=== PATIENT | male | born 1970 | race Caucasian/White ===

== ENCOUNTER 2016-12-18 11:40 | Inpatient (IN) | payer OTHER ==
[~2016-12-18 11:40] MED LIST: BACITRACIN 50,000 UNITS/10 ML SYR IRR ONE; BUPIVACAINE/EPI 0.25% 30 ML SDV ONE; SKIN ADHESIVE (DERMABOND) 1 EACH TP ONE; THROMBIN (RECOMBINANT) 20,000 UNIT VIAL TP ONE; ceFAZolin 2 GM/DEXTROSE 100 ML IV ONE
[2016-12-18] MEDS ORDERED: CEFAZOLIN 2 GM/DEXTROSE/100 ML BAG IV ONE (13:10)
[2016-12-18] MEDS ORDERED: GABAPENTIN 300 MG CAP PO ONE (13:30)
[2016-12-18] MEDS ORDERED: fentaNYL 100 MCG/2 ML INJ ONE ×2 (13:54→20:46)
[2016-12-18] MEDS ORDERED: PROPOFOL 200 MG/20 ML VIAL ONE ×2 (13:54→17:04)
[2016-12-18] MEDS ORDERED: REMIFENTANIL HCL 1 MG VIAL ONE ×3 (13:54)
[2016-12-18] MEDS ORDERED: PROPOFOL/EMULSION 500 MG/50 ML BOTTLE IV ONE ×2 (13:54→18:22)
[2016-12-18] MEDS ORDERED: LACTULOSE 20 GM/30 ML UDCUP PO PRN (16:58)
[2016-12-18] MEDS ORDERED: ONDANSETRON 4 MG/2 ML VIAL IVP PRN (16:58)
[2016-12-18] MEDS ORDERED: diphenhydrAMINE 25 MG CAP PO PRN (16:58)
[2016-12-18] MEDS ORDERED: ONDANSETRON DISINTEGRATING 4 MG TAB PO PRN (16:58)
[2016-12-18] MEDS ORDERED: DIAZEPAM 5 MG TAB PO PRN (16:58)
[2016-12-18] MEDS ORDERED: MAGNESIUM HYDROXIDE 30 ML UDCUP PO PRN (16:58)
[2016-12-18] MEDS ORDERED: METHOCARBAMOL 750 MG TAB PO PRN (16:58)
[2016-12-18] MEDS ORDERED: DIAZEPAM 10 MG/2 ML SYR IVP PRN (16:58)
[2016-12-18] MEDS ORDERED: POLYETHYLENE GLYCOL 3350 17 GM PKT PO PRN (16:58)
[2016-12-18] MEDS ORDERED: BISACODYL 10 MG SUPP PR PRN (16:58)
[2016-12-18] MEDS ORDERED: ACETAMINOPHEN 325 MG TAB PO PRN (16:58)
[2016-12-18] MEDS ORDERED: MIDAZOLAM 2 MG/2 ML VIAL ONE (16:59)
[2016-12-18] MEDS ORDERED: NS W/ 20 KCl/L 1,000 ML IV SCH (17:00)
[2016-12-18] MEDS ORDERED: ROCURONIUM 50 MG/5 ML VIAL ONE ×2 (17:03)
[2016-12-18] MEDS ORDERED: LIDOCAINE 2% 5 ML SDV ONE (17:04)
[2016-12-18] MEDS ORDERED: PHENYLEPHRINE HCL 100 MCG/ML SYR ONE (17:39)
[2016-12-18] MEDS ORDERED: ONDANSETRON 4 MG/2 ML VIAL ONE (18:06)
[2016-12-18] MEDS ORDERED: DEXAMETHASONE 4 MG/ML VIAL ONE (18:06)
[2016-12-18] MEDS ORDERED: KETAMINE 100 MG/10 ML SYR IVP ONE (18:33)
[2016-12-18] MEDS ORDERED: HYDROmorphONE/DILAUDID 2 MG/ML SYR ONE (18:33)
--- NOTE | 2016-12-18 20:06 | POSTOPPROG ---
Post Op Note Date of Operation: 12/18/16 Surgeon: Sukhjinder Quinn Hard Tile Setter: SURAJ Hilton, PAC Anesthesia: GET(General Endotracheal) Pre-op Diagnosis: spondylolisthesis, radiculopathy Post-op Diagnosis: spondylolisthesis, radiculopathy Indication: spondylolisthesis, radiculopathy Procedure: L5/S1 TLIF/PSF Inf/Abcess present in the surg proc area at time of surgery?: No EBL: 100cc PA Addendum - Addendum .: S: Incisional site, low back pain O: NAD A&Ox3 MAEx4 5/5 and equal in BUE and BLE A/P 46y/o male s/p L5/S! TLIF/PSF -Optimize pain management -Advance diet as tolerated -Post op xrays pending -PT/OT -DVT prophx: TEDs, SCDs, Lovenox okay POD#1 -Please notify NS with any change in neuro/motor exam
--- NOTE | 2016-12-18 21:19 | DX ---
Fluoroscopy Provided for Lumbar Spine Surgery at 1621 hours Indication: Low back pain. Fluoroscopy provided for lumbar spine fusion. Fluoroscopy time: 13.47 seconds. Dose: 36.59 mGy. Two O-arm spins were utilized yielding 438.93 DLP(mGycm) Technique: Two intraoperative spot films were obtained. Findings: Dual posterior fusion construct has been placed at L5-S1. Impression: Fluoroscopy provided for intraoperative localization for L5-S1 fusion.
[2016-12-18] MEDS ORDERED: HYDROmorphONE/DILAUDID 1 MG/ML SYR ONE (21:25)
[2016-12-18] MEDS ORDERED: NON-FORMULARY NEW DRUG (Oxycodone Hcl/Acetaminophen [Percocet 10-325 Mg Tablet] 1 EACH) PO SCH (22:00)
[2016-12-18] MEDS: metFORMIN HCL 500 MG TAB PO SCH (22:51)
[2016-12-18] MEDS: ACETAMINOPHEN 325 MG TAB PO SCH (23:06)
[2016-12-18] MEDS: BACLOFEN 10 MG TAB PO SCH (23:13)
[2016-12-18] MEDS: FAMOTIDINE 20 MG/NACL 50 ML IV SCH (23:14)
[2016-12-18] MEDS: GABAPENTIN 300 MG CAP PO SCH (23:14)
[2016-12-18] MEDS: oxyCODONE IR 5 MG TAB PO SCH (23:15)
[2016-12-18] MEDS: SENNOSIDES/DOCUSATE SODIUM TAB PO SCH (23:16)
[2016-12-18 23:32] VITALS: RESP 16
[2016-12-19] MEDS: OXYCODONE/APAP 5/325 TAB PO PRN ×2 (05:28→14:08)
--- NOTE | 2016-12-19 06:42 | GOP ---
[f rep st] OPERATIVE REPORT DATE OF OPERATION: 12/18/2016 SURGEON: Sukhjinder Quinn MD NEUROSURGEON: Sukhjinder Quinn MD. ZINC SKIMMER: THEODORE Mcbride. ANESTHESIA: General endotracheal. PREOPERATIVE DIAGNOSIS: L5-S1 isthmic spondylolisthesis with right L5 radiculopathy which has been c hronic and refractory to conservative management. POSTOPERATIVE DIAGNOSIS: L5-S1 isthmic spondylolisthesis with right L5 radiculopathy which has been chronic and refractory to conservative management. PROCEDURE PERFORMED: 1. L5-S1 transforaminal lumbar interbody fusion. 2. Placement of pedicle screw fixation and posterior instrumentation at L5 and S1. 3. O-arm stereotactic neuronavigation for screw placement. 4. Placement of interbody device at L5-S1. 5. Cody of local autograft. 6. Use of allograft BMP and demineralized bone matrix. 7. Use of the operative microscope. 8. Intraoperative somatosensory evoked potential monitoring. FINDINGS: Successful L5-S1 TLIF. SPECIMENS: There were no specimens. ESTIMATED BLOOD LOSS: 100 cc. INDICATIONS: The patient is a 46-year-old man who has right-sided leg pain in an L5 distribution. H e was found to have isthmic spondylolisthesis at L5-S1 and some foraminal stenosis associated with th is. He presented to our clinic, and after multiple attempts at conservative management, he has wishe d to pursue fusion. DESCRIPTION OF PROCEDURE: After informed consent was obtained from the patient, the patient was brou ght to the operating room. A formal time-out was performed identifying the patient by name, medical record number, and date of . Preoperative antibiotics were given. An endotracheal tube was jonelle rhonda, and general endotracheal anesthesia was smoothly induced. The patient was turned to the prone p osition on a Austin table, and all appropriate pressure points were padded and checked. The leads w ere placed for somatosensory evoked potential monitoring, and baselines were run and were normal. At this point, the low lumbar region was prepped and draped in the normal sterile fashion. 20 cc of 1% lidocaine with epinephrine was infiltrated in the skin for hemostasis. The O-arm was brought into t he field, and the L5-S1 interspace was identified, and the incision was planned appropriately. A 5 c m skin incision was then made centered over the L5-S1 disk space, and the subcutaneous tissues were d issected using monopolar electrocautery. The fascia was opened in the midline and the paraspinous mu scles were taken down from the L5 lamina and S1 lamina exposing the facet joints laterally. At this point, an O-arm stereotactic CT was performed, and stereotactic navigation was then used to localize the entry points for the pedicle screws at L5 and S1. Once the entry points were localized, on the l eft side a pedicle hole was drilled using navigation and was subsequently tapped for a 6.5 x 50 mm So alesia screw. The same procedure was performed at S1 on the left side, and this was drilled and tapped for a 6.5 x 55 mm Solera screw. The same procedure was performed on the right side, placing a 6.5 x 50 mm screw at L5 on the right and a 6.5 x 55 mm screw at S1 on the right. All of the screws were t ested using EMG, and none stimulated below the threshold. At this point, the high-speed drill was us ed to drill down the lamina and remove the inferior facet of L5 on the right side and then subsequent ly remove the superior facet of S1. The yellow ligament was removed, getting us down to the disk spa ce and the traversing nerve root medially. The operative microscope was then brought on the field, a nd the remainder of the procedure was performed under high power magnification. First, the disk spac e was entered sharply and pituitary forceps were used to remove what disk we could. We then used a c ombination of rasps and curettes to remove the remainder of the disk and decorticate the endplates. Once the diskectomy was completely performed, a small piece of BMP was advanced to the contralateral side and some autograft was placed into the disk space. We then sized the disk space for a 7-11 by 2 8 mm Elevate cage which was packed with BMP and autograft. This was then placed into the disk space under fluoroscopic vision and opened to its final height. Once we were satisfied with the placement of the cage, a small amount of autograft was then placed behind the cage into the disk space, and a small piece of Gelfoam was placed over the area of the TLIF. At this point, the wound was copiously irrigated using bacitracin irrigation. The right side was sized for a 35 mm justyn, and the left side w as sized for a 40 mm justyn, which were placed into the screw heads and connected with cap screws which were finally tightened to the appropriate torque. On the left side, the L5 lamina and S1 lamina were decorticated using a high-speed drill. The final piece of BMP was placed over this area which was c overed with autograft and allograft demineralized bone matrix. At this point, again the wound was co piously irrigated with a liter of bacitracin irrigation. There was no further bleeding, and we did n ot feel it necessary to place a drain. The fascia was then closed using interrupted 0 Vicryl. The s uperficial fascia was closed using interrupted 2-0 Vicryl. The deep dermis was closed using interrup brooks 2-0 Vicryl, and Dermabond was placed over the wound. Sterile dressings were placed. The patient was then awakened in the operating room and was turned back into the supine position. He was extuba brooks and was transferred to the PACU in stable condition. COMPLICATIONS: There were no operative complications. I was scrubbed and present for the entire procedure. COUNTS: All sponge and needle counts were correct at the end of the case. DRAINS: There were no drains. FLUIDS: Per the anesthesia record. URINE OUTPUT: Per the anesthesia record. /[id number]/MODL
[2016-12-19 07:35] VITALS: O2SAT 94
--- NOTE | 2016-12-19 08:04 | NEUSURGPN ---
Date of Surgery: 12/18/16 Post Op Day: 1 Assessment/Plan: POD #1 sp L5/S1 TLIF. Doing well Plan: Xrays today PT/OT advance activity as tolerated Needs LSO when out of bed. Subjective: in bed, comfortable with expected post op incisional pain denies numbness or tingling Objective: Dressing: CDI No JACLYN Neuro: Freire, Sens + LT follolws commands Urinary Catheter in Place: No Neurosurgery Physical Exam - Vitals, I&O, Labs I and O 12/18/16 12/19/16 12/20/16 05:59 05:59 05:59 Intake Total 2400 Output Total 150 Balance 2250 Intake: Oral (ml) 200 IV Intake (ml) 1400 IV Infused (ml) 800 ceFAZolin 1 GM/DEXTROSE 50 50 ml @ 200 mls/hr IV Q8H DAMIR Rx#:[id number] Famotidine 20 mg/NaCl 50 50 ml @ 200 mls/hr IV Q12HRS DAMRI Rx#:[id number] NS W/ 20 KCl/L 1,000 ml @ 700 75 mls/hr IV CONT DAMIR Rx #:[id number] Output: Estimated Blood Loss (ml) 150 Other: Output Comment Toilet PT states shy bladder unable to void in urinal or collection katz Number of Voids Toilet 3 Post Void Residual Scan Volume (ml) Toilet 100 Vital Signs Temp Pulse Resp BP Pulse Ox 36.8 C 93 16 133/83 H 94 12/19/16 07:35 12/19/16 07:35 12/19/16 07:35 12/19/16 07:35 12/19/16 07:35 ICD10 Worksheet Patient Problems: Problems Problem Status Diagnosed Spondylisthesis Acute - ICD10 Problem Qualifiers (1) Spondylisthesis
[2016-12-19] MEDS: metFORMIN HCL 500 MG TAB PO SCH ×2 (08:53→18:20)
[2016-12-19] MEDS: ACETAMINOPHEN 325 MG TAB PO SCH ×2 (08:54→16:26)
[2016-12-19] MEDS ORDERED: MOMETASONE FUROATE 50 MCG EACHNARE SCH (09:00)
[2016-12-19] MEDS ORDERED: CHOLECALCIFEROL VIT D3 1,000 UNITS TAB PO SCH (09:00)
[2016-12-19] MEDS ORDERED: FAMOTIDINE 20 MG TAB PO SCH (09:30)
[2016-12-19] MEDS: BACLOFEN 10 MG TAB PO SCH ×2 (09:42→16:20)
[2016-12-19] MEDS: GABAPENTIN 300 MG CAP PO SCH ×2 (09:43→16:21)
[2016-12-19] MEDS: SENNOSIDES/DOCUSATE SODIUM TAB PO SCH (09:43)
[2016-12-19] MEDS: oxyCODONE IR 5 MG TAB PO SCH ×2 (09:43→16:21)
[2016-12-19] MEDS: FAMOTIDINE 20 MG/NACL 50 ML IV SCH (09:48)
[2016-12-19 16:33] VITALS: BP 140/86; PULSE 102; TEMP 98.7
--- NOTE | 2016-12-19 18:23 | DX ---
Lumbar spine, 2 views. December 19, 2016. History: Postop. Comparison examination: September 17, 2016. Findings: Surgical features of instrumentation and fusion at L5-S1 with bilateral pedicle screws at b oth levels and posterior justyn fixation along with metallic intervertebral graft anteriorly. Minimal re sidual anterolisthesis of L5 upon S1. Bilateral spondylolysis is again noted. Impression: 1. Status post instrumentation and fusion at L5-S1 without complication. Mild residual spondylolisthe sis.
[2016-12-19] MEDS ORDERED: ENOXAPARIN 40 MG/0.4 ML SYR SC SCH (20:00)
== END 2016-12-19 18:53 | disposition home or self-care (01) | DRG 460 ==
LOC: F3N 11:40
PROVIDERS: ADMIT Neurological Surgery; ATTEND Neurological Surgery
PROC: 3E0U0GB Introduction of Recombinant Bone Morphogenetic Protein into Joints, Open Approach (ICD-10-PCS; principal; 2016-12-18 13:45)
PROC: 0SB40ZZ Excision of Lumbosacral Disc, Open Approach (ICD-10-PCS; principal; 2016-12-18 13:45)
PROC: 0SG30AJ Fusion of Lumbosacral Joint with Interbody Fusion Device, Posterior Approach, Anterior Column, Open Approach (ICD-10-PCS; principal; 2016-12-18 13:45)
DX: M43.17 Spondylolisthesis, lumbosacral region (principal); M54.17 Radiculopathy, lumbosacral region
CPT/HCPCS: 97161-GP; 97165-GO; C1713; J0690; J1100; J1170; J2250; J2370; J2405; J2704; J3010

== ENCOUNTER → 2017-01-29 | Outpatient (CLI) | payer OTHER | LOC: FIMAGING 10:37 | PROVIDERS: ATTEND Neurological Surgery | DX: Z09 Encounter for follow-up examination after completed treatment for conditions other than malignant neoplasm (principal); Z98.1 Arthrodesis status ==

== ENCOUNTER → 2017-04-05 | Outpatient (CLI) | payer OTHER | LOC: FIMAGING 13:19 | DX: M43.27 Fusion of spine, lumbosacral region (principal) ==

== ENCOUNTER → 2017-07-12 | Outpatient (CLI) | payer OTHER | LOC: FIMAGING 09:12 | DX: Z09 Encounter for follow-up examination after completed treatment for conditions other than malignant neoplasm (principal); Z98.1 Arthrodesis status ==

== ENCOUNTER → 2017-12-12 | Outpatient (CLI) | payer OTHER | LOC: FIMAGING 08:57 | PROVIDERS: ATTEND Physician Assistant | DX: M43.17 Spondylolisthesis, lumbosacral region (principal); Z98.1 Arthrodesis status ==

== ENCOUNTER → 2017-12-13 | Outpatient (CLI) | payer OTHER | LOC: BMCIMAGING 08:50 | PROVIDERS: ATTEND Physician Assistant | DX: K75.81 Nonalcoholic steatohepatitis (NASH) (principal) ==